=== PATIENT | female | born 1970 | race Caucasian/White ===

== ENCOUNTER 2018-03-21 16:57 | Emergency (ER) | payer OTHER ==
[~2018-03-21] VITALS: Ht 165.1 cm; Wt 104.8 kg
[2018-03-21] MEDS ORDERED: IV NORMAL SALINE 1,000ML 1,000 ML IV SCH (17:21)
[2018-03-21] MEDS ORDERED: FAMOTIDINE 20 MG/2 ML VIAL IVP ONE (17:30)
[2018-03-21] MEDS ORDERED: KETOROLAC 30 MG/ML VIAL. IV ONE (17:30)
--- NOTE | 2018-03-21 18:00 | RAD ---
INDICATION : RUQ PAIN COMPARISON: None TECHNIQUE: Multiple ultrasound images obtained through the abdomen in grayscale and color. FINDINGS: Liver: Echogenic with poor beam penetration. Large portions of liver not well seen. Gallbladder: Limited visualization but definite stones not seen. IVC: Partially distended at level of liver. Common Bile Duct: Not well seen but definitive bile duct dilation is not identified Pancreas: Poorly visualized secondary to overlying bowel gas. Right Kidney: No hydronephrosis. IMPRESSION: 1. Liver is echogenic. Nonspecific but can be seen with fatty infiltration Electronically signed by: Brannon Broderick MD (03/21/2018 5:56 PM) [facility]
--- NOTE | 2018-03-21 18:07 | PHYS DOC ---
Past History Past Medical History: Arthritis, Other Past Surgical History: Tubal ligation, Other Alcohol Use: None Drug Use: None Adult General Chief Complaint Chief Complaint: ABDOMINAL PAIN HPI HPI Patient is a 47-year-old female who presents with in of right upper quadrant pain. Patient complaining of intermittent episodes of right upper quadrant pain for 6 the stabbing pain that getting more constant for the last couple days. Patient complaining of nausea and decrease of appetite. Patient states the pain getting worse after eating. Patient was seen by her primary care physician yesterday and had ultrasound of gallbladder and labs with pending results. Patient treated her pain 10/01 and states her physician did not give her any pain medication. Patient denies fever and chills, diarrhea and constipation, urinary symptoms, vaginal bleeding or discharge. Review of Systems Review of Systems Constitutional: Denies fever or chills [] Eyes: Denies change in visual acuity, redness, or eye pain [] HENT: Denies nasal congestion or sore throat [] Respiratory: Denies cough or shortness of breath [] Cardiovascular: No additional information not addressed in HPI [] GI: Reports abdominal pain, nausea, denies vomiting, bloody stools or diarrhea [ ] : Denies dysuria or hematuria [] Musculoskeletal: Denies back pain or joint pain [] Integument: Denies rash or skin lesions [] Neurologic: Denies headache, focal weakness or sensory changes [] Endocrine: Denies polyuria or polydipsia [] All other systems were reviewed and found to be within normal limits, except as documented in this note. Current Medications Current Medications Current Medications Medications (Trade) Dose Ordered Sig/Rubi Start Time Stop Time Status Last Admin Dose Admin Famotidine (Pepcid Vial) 20 mg 1X ONCE 03/21/18 17:30 03/21/18 17:31 DC Ketorolac Tromethamine (Toradol 30mg Vial) 30 mg 1X ONCE 03/21/18 17:30 03/21/18 17:31 DC Sodium Chloride 1,000 ml @ 1,000 mls/hr Q1H 03/21/18 17:21 03/21/18 18:20 Allergies Allergies Allergies Coded Allergies Type Severity Reaction Last Updated Verified No Known Drug Allergies 03/21/18 No Physical Exam Physical Exam Constitutional: Well developed, well nourished, mild distress, non-toxic appearance. [] HENT: Normocephalic, atraumatic, oropharynx moist, no oral exudates, nose normal. [] Eyes: PERRLA, EOMI, conjunctiva normal, no discharge. [] Neck: Normal range of motion, no tenderness, supple, no stridor. [] Cardiovascular:Heart rate regular rhythm, no murmur [] Lungs & Thorax: Bilateral breath sounds clear to auscultation [] Abdomen: Bowel sounds normal, soft, right upper quadrant guarding, no tenderness , no masses, no pulsatile masses. [] Skin: Warm, dry, no erythema, no rash. [] Back: No tenderness, no CVA tenderness. [] Extremities: No tenderness, no cyanosis, no clubbing, ROM intact, no edema. [] Neurologic: Alert and oriented X 3, normal motor function, normal sensory function, no focal deficits noted. [] Psychologic: Affect normal, judgement normal, mood normal. [] Current Patient Data Vital Signs Vital Signs Date Time Temp Pulse Resp B/P (MAP) Pulse Ox O2 Delivery O2 Flow Rate FiO2 03/21/18 16:57 98.1 112 20 96 Room Air EKG EKG [] Radiology/Procedures Radiology/Procedures US shows no acute gall bladder distention. Fatty Liver.- See Formal Report[] Impressions: 1. Abd. Pain-Rt. upper quadrant 2. Suspect Biliary Colic 3. Elevated AST, ALT 78/136 Course & Med Decision Making Course & Med Decision Making Pertinent Labs and Imaging studies are pending. Evaluation of patient in ER showed 47-year-old female patient with complaining of right upper quadrant pain for several days that getting worse with eating. Patient had right upper quadrant guarding. Labs and gallbladder ultrasound is pending. Patient care transferred to Dr. Rhodes had 1800. See Dr[address] Whitaker report for details. Will discharge home with Zantact 150 twice a day and Zofran 8 for Nausea PRN up 4 x day. Must stay on clear fluid diet. Follow up with Dr. Torres- recommend EGD and out pt. Gall bladder studies. Return if any concerns. Still had some Rt. upper quadrant tenderness but much improved at time of discharge. Dragon Disclaimer Dragon Disclaimer This electronic medical record was generated, in whole or in part, using a voice recognition dictation system. Departure Departure: Impression: Primary Impression: Right upper quadrant pain Scripts Ondansetron Hcl (ZOFRAN) 8 Mg Tablet 8 MG PO QIDPRN PRN for NAUSEA/VOMITING, #30 TAB Prov: ALISON RHODES MD 03/21/18 Ranitidine Hcl (ZANTAC) 150 Mg Tablet 150 MG PO BID for pain, #30 TAB Prov: ALISON RHODES MD 03/21/18 Oxycodone Hcl/Acetaminophen (PERCOCET 5-325 MG TABLET ) 1 Each Tablet 1 TAB PO PRN Q6HRS PRN for PAIN, #30 TAB Prov: ALISON RHODES MD 03/21/18 Discharge Summary Visit Information Final Diagnosis Problems Medical Problems: (1) Right upper quadrant pain Status: Acute Brief Hospital Course Allergies Allergies Coded Allergies Type Severity Reaction Last Updated Verified No Known Drug Allergies 03/21/18 No Vital Signs Vital Signs Date Time Temp Pulse Resp B/P (MAP) Pulse Ox O2 Delivery O2 Flow Rate FiO2 03/21/18 20:45 92 16 124/74 (91) 97 Room Air 03/21/18 16:57 98.1 Lab Results Laboratory Tests Test 03/21/18 17:58 White Blood Count 10.0 x10^3/uL (4.0-11.0) Red Blood Count 4.82 x10^6/uL (3.50-5.40) Hemoglobin 14.5 g/dL (12.0-15.5) Hematocrit 42.8 % (36.0-47.0) Mean Corpuscular Volume 89 fL (79-100) Mean Corpuscular Hemoglobin 30 pg (25-35) Mean Corpuscular Hemoglobin Concent 34 g/dL (31-37) Red Cell Distribution Width 13.6 % (11.5-14.5) Platelet Count 322 x10^3/uL (140-400) Neutrophils (%) (Auto) 69 % (31-73) Lymphocytes (%) (Auto) 22 % (24-48) Monocytes (%) (Auto) 7 % (0-9) Eosinophils (%) (Auto) 1 % (0-3) Basophils (%) (Auto) 1 % (0-3) Neutrophils # (Auto) 7.0 x10^3uL (1.8-7.7) Lymphocytes # (Auto) 2.2 x10^3/uL (1.0-4.8) Monocytes # (Auto) 0.7 x10^3/uL (0.0-1.1) Eosinophils # (Auto) 0.1 x10^3/uL (0.0-0.7) Basophils # (Auto) 0.1 x10^3/uL (0.0-0.2) Urine Collection Type Unknown Urine Color Yellow Urine Clarity Clear Urine pH 5.0 Urine Specific [place] 1.010 Urine Protein Neg (NEG-TRACE) Urine Glucose (UA) Neg mg/dL (NEG) Urine Ketones (Stick) Neg mg/dL (NEG) Urine Blood Small (NEG) Urine Nitrite Neg (NEG) Urine Bilirubin Neg (NEG) Urine Urobilinogen Dipstick 0.2 mg/dL (0.2 mg/dL) Urine Leukocyte Esterase Neg (NEG) Urine RBC Occ /HPF (0-2) Urine WBC 1-4 /HPF (0-4) Urine Squamous Epithelial Cells Occ /LPF Urine Bacteria 0 /HPF (0-FEW) Urine Mucus Slight /LPF Sodium Level 138 mmol/L (136-145) Potassium Level 4.2 mmol/L (3.5-5.1) Chloride Level 101 mmol/L (98-107) Carbon Dioxide Level 29 mmol/L (21-32) Anion Gap 8 (6-14) Blood Urea Nitrogen 10 mg/dL (7-20) Creatinine 0.8 mg/dL (0.6-1.0) Estimated GFR (Cockcroft-Gault) 76.9 BUN/Creatinine Ratio 13 (6-20) Glucose Level 108 mg/dL (70-99) Calcium Level 8.9 mg/dL (8.5-10.1) Total Bilirubin 0.1 mg/dL (0.2-1.0) Aspartate Amino Transf (AST/SGOT) 78 U/L (15-37) Alanine Aminotransferase (ALT/SGPT) 136 U/L (14-59) Alkaline Phosphatase 93 U/L (46-116) Total Protein 8.0 g/dL (6.4-8.2) Albumin 3.6 g/dL (3.4-5.0) Albumin/Globulin Ratio 0.8 (1.0-1.7) Lipase 142 U/L (73-393) Brief Hospital Course Ms. López is a 47 old female who presented with Rt. upper quadrant pain- suspect biliary colic vs gastritis. Discharge Information Condition at Discharge: Improved Disposition/Orders: D/C to Home Dischare Medications Current Medications Sodium Chloride 1,000 ml @ 1,000 mls/hr Q1H IV Last administered on at 18:01; Start 03/21/18 at 17:21; Stop 03/21/18 at 18:20; Status DC Famotidine (Pepcid Vial) 20 mg 1X ONCE IVP Last administered on 03/21/18at 18: 03; Start 03/21/18 at 17:30; Stop 03/21/18 at 17:31; Status DC Ketorolac Tromethamine (Toradol 30mg Vial) 30 mg 1X ONCE IV Last administered on 03/21/18at 18:04; Start 03/21/18 at 17:30; Stop 03/21/18 at 17:31; Status DC Active Scripts Active Zofran (Ondansetron Hcl) 8 Mg Tablet 8 Mg PO QIDPRN PRN Zantac (Ranitidine Hcl) 150 Mg Tablet 150 Mg PO BID Percocet 5-325 Mg Tablet (Oxycodone Hcl/Acetaminophen) 1 Each Tablet 1 Tab PO PRN Q6HRS PRN Dragon Disclaimer This chart was dictated in whole or in part using Voice Recognition software in a busy, high-work load, and often noisy Emergency Department environment. It may contain unintended and wholly unrecognized errors or omissions. JOSE EDUARDO WHITAKER MD Mar 21, 2018 18:07 ALISON RHODES MD Mar 22, 2018 05:59
[2018-03-21 18:10] LABS: BASO # 0.1 x10^3/uL (0.0-0.2); BASO % 1 % (0-3); EOS # 0.1 x10^3/uL (0.0-0.7); EOS % 1 % (0-3); HEMATOCRIT 42.8 % (36.0-47.0); HEMOGLOBIN 14.5 g/dL (12.0-15.5); LYMPH # 2.2 x10^3/uL (1.0-4.8); LYMPH % 22 % (24-48); MEAN CORPUSCULAR HEMOGLOBIN 30 pg (25-35); MEAN CORPUSCULAR HGB CONC 34 g/dL (31-37); MEAN CORPUSCULAR VOLUME 89 fL (79-100); MONO # 0.7 x10^3/uL (0.0-1.1); MONO % 7 % (0-9); NEUT % 69 % (31-73); PLATELET COUNT 322 x10^3/uL (140-400); RED BLOOD COUNT 4.82 x10^6/uL (3.50-5.40); RED CELL DISTRIBUTION WIDTH 13.6 % (11.5-14.5)
[2018-03-21 18:18] LABS: BACTERIA,URINE 0 /HPF (0-FEW); BILIRUBIN,URINE NEG (NEG); CLARITY,URINE CLEAR; COLOR,URINE YELLOW; GLUCOSE,URINE NEG (NEG); NITRITE,URINE NEG (NEG); RBC,URINE OCC /HPF (0-2); SQUAMOUS EPITHELIAL CELL,UR OCC /LPF; UROBILINOGEN,URINE 0.2 mg/dL (0.2 mg/dL)
[2018-03-21 18:24] LABS: ALBUMIN 3.6 g/dL (3.4-5.0); ALBUMIN/GLOBULIN RATIO 0.8 (1.0-1.7); CALCIUM 8.9 mg/dL (8.5-10.1); CREATININE 0.8 mg/dL (0.6-1.0); GFR 76.9; POTASSIUM 4.2 mmol/L (3.5-5.1); TOTAL BILIRUBIN 0.1 mg/dL (0.2-1.0)
[2018-03-21] MEDS ORDERED: RANI150T21 PO (19:51)
[2018-03-21] MEDS ORDERED: OXYC1TAB15 PO (19:51)
[2018-03-21] MEDS ORDERED: ONDA8TAB9 PO (19:53)
[2018-03-21 20:45] VITALS: BP 124/74
== END 2018-03-21 20:47 | disposition home or self-care (01) ==
LOC: ER 16:57
DX: R10.11 Right upper quadrant pain (principal); R11.0 Nausea; R74.0 Nonspecific elevation of levels of transaminase and lactic acid dehydrogenase [LDH]; M19.90 Unspecified osteoarthritis, unspecified site; Z98.51 Tubal ligation status
CPT/HCPCS: 36415; 76705; 80053; 81001; 83690; 85025; 96374; 96375; 99284; J1885; J3490; J7030

== ENCOUNTER 2018-06-16 19:11 | Emergency (ER) | payer OTHER ==
[~2018-06-16] VITALS: Ht 165.1 cm; Wt 102.1 kg
[~2018-06-16 19:11] MED LIST: ONDA8TAB9 PO; OXYC1TAB15 PO; RANI150T21 PO
[2018-06-16] MEDS ORDERED: FAMOTIDINE 20 MG/2 ML VIAL IVP ONE (20:15)
--- NOTE | 2018-06-16 20:26 | PHYS DOC ---
Past History Past Medical History: Arthritis, Other Past Surgical History: Tubal ligation, Other Alcohol Use: None Drug Use: None Adult General Chief Complaint Chief Complaint: ABDOMINAL PAIN HPI HPI This is a 48-year-old female who presents to the emergency department today complaining of RUQ abdominal pain. The pain has been intermittent for some time now but became considerably worse in February 2018. Since then, the abdominal pain comes and goes but is becoming more problematic for her. She describes the pain as sharp. Occasionally radiates to mid-epigastric region. Hydrocodone has helped alleviate the pain the most, and Aleve helps a little. Sleeping on her right side and certain foods seem to make the pain worse. She also describes pain caused by palpation of her RUQ, sometimes elicited by palpating her ribs. Her most recent episode shortly followed ingestion of a pork-chop salad. She has had a positive HIDA showing an "overactive gallbladder". She has had an ultrasound which was not significant for gallstones. Surgery offered elective cholecystectomy without a guarantee of pain relief. Patient opted for additional testing to find a definitive cause for her pain. Denies trauma. Reports pain similar to prior episodes for which patient is following with general surgery and GI. Reports she is presenting to the ED for pain control. Review of Systems Review of Systems Constitutional: Denies fever or chills. Eyes: Denies change in visual acuity, redness, or eye pain. HENT: Denies nasal congestion or sore throat. Respiratory: Denies cough or shortness of breath. Cardiovascular: Denies chest pain or palpitations GI: Admits abdominal pain, occasional bloody stools. Denies diarrhea. : Denies dysuria or hematuria. Musculoskeletal: Admits back pain, joint pain. Integument: Denies rash or skin lesions. Neurologic: Denies headache, focal weakness or sensory changes. Complete systems were reviewed and found to be within normal limits, except as documented in this note. Current Medications Current Medications Adderall Wellbutrin Clobetasol Diphenhydramine Folic acid Omeprazole Xeljanz Zofran Oxycodone Allergies Allergies Allergies Coded Allergies Type Severity Reaction Last Updated Verified No Known Drug Allergies 03/21/18 No Physical Exam Physical Exam Constitutional: Well developed, well nourished, no acute distress, non-toxic appearance. [] HENT: Normocephalic, atraumatic, oropharynx moist Eyes: Conjunctiva normal, no discharge. [] Neck: Normal range of motion, no tenderness, supple, no stridor. [] Cardiovascular: Heart rate regular rhythm, no murmur [] Lungs & Thorax: Bilateral breath sounds clear to auscultation [] Abdomen: Soft, mild tenderness to epigastrium and RUQ Skin: Warm, dry, no erythema, no rash. [] Extremities: No tenderness, ROM intact, no edema. [] Neurologic: Alert and oriented X 3, no focal deficits noted. [] Psychologic: Affect normal, judgement normal, mood normal. [] EKG EKG @2111 NSR at 79bpm, NO ST elevation, some baseline artifact noted Radiology/Procedures Radiology/Procedures [] Course & Med Decision Making Course & Med Decision Making Patient presents with acute on chronic abdominal pain. She has been seen by general surgery and followed by GI specialist. She has had ultrasound and HIDA done in the past. She is here today primarily for pain control as it has become more difficult to manage. She stated that she has only had 10 tablets of oxycodone prescribed to her this year which was confirmed by [facility] report. Labs obtained and posted to chart. Pain was controlled in the ER, and she will be discharged and advised to follow-up with her general surgeon and/or GI specialist to reach a long-term solution for her abdominal pain. Patient stable for discharge with outpatient follow-up with PCP/Gen. surgery/ GI. Discussed findings and plan with patient and family, who acknowledge understanding and agreement. Dragon Disclaimer Dragon Disclaimer This electronic medical record was generated, in whole or in part, using a voice recognition dictation system. Departure Departure: Impression: Primary Impression: RUQ abdominal pain Disposition: HOME, SELF-CARE Condition: STABLE Referrals: ABDULLAHI GREENE MD (PCP) Patient Instructions: Abdominal Pain (Nonspecific) Scripts Hydrocodone Bit/Acetaminophen (NORCO 5-325 TABLET) 1 Each Tablet 0.5-1 TAB PO Q6HRS PRN for PAIN, #14 TAB Prov: LUCIA NOLEN DO 06/16/18 LUCIA NOLEN DO Jun 16, 2018 20:26
[2018-06-16] MEDS ORDERED: KETOROLAC 15 MG/ML VIAL. IV ONE (20:30)
[2018-06-16 20:52] LABS: BASO % 0 % (0-3); EOS # 0.1 x10^3/uL (0.0-0.7); EOS % 1 % (0-3); HEMOGLOBIN 14.1 g/dL (12.0-15.5); LYMPH # 2.6 x10^3/uL (1.0-4.8); LYMPH % 33 % (24-48); MEAN CORPUSCULAR HEMOGLOBIN 30 pg (25-35); MEAN CORPUSCULAR HGB CONC 34 g/dL (31-37); MEAN CORPUSCULAR VOLUME 89 fL (79-100); MONO # 0.4 x10^3/uL (0.0-1.1); MONO % 5 % (0-9); NEUT # 4.8 x10^3uL (1.8-7.7); NEUT % 61 % (31-73); PLATELET COUNT 344 x10^3/uL (140-400); RED BLOOD COUNT 4.73 x10^6/uL (3.50-5.40); RED CELL DISTRIBUTION WIDTH 13.2 % (11.5-14.5); WHITE BLOOD COUNT 7.9 x10^3/uL (4.0-11.0)
--- NOTE | 2018-06-16 21:32 | EKG ---
[address] [address] Test Date: 2018-06-16 Test Time: 21:11:59 Pat Name: POLI WOLFE Department: Room: Gender: F [employer]: : 1970 Requested By: LUCIA NOLEN Order Number: [id number] Reading MD: Binu Robison MD Measurements Intervals [place] Rate: 79 P: 49 TX: 152 QRS: 33 QRSD: 88 T: 42 QT: 424 QTc: 487 Interpretive Statements SINUS RHYTHM Electronically Signed On 06-17-2018 9:19:48 CDT by Binu Robison MD
[2018-06-16 21:50] LABS: BACTERIA,URINE 0 /HPF (0-FEW); BILIRUBIN,URINE NEG (NEG); CLARITY,URINE CLEAR; COLOR,URINE YELLOW; GLUCOSE,URINE NEG (NEG); NITRITE,URINE NEG (NEG); SQUAMOUS EPITHELIAL CELL,UR OCC /LPF; UROBILINOGEN,URINE 0.2 mg/dL (0.2 mg/dL); WBC,URINE 0 /HPF (0-4)
[2018-06-16] MEDS ORDERED: HYDROcodone/APAP 5/325MG 1 TAB TABLET PO ONE (22:00)
[2018-06-16 22:29] VITALS: BP 110/67
[2018-06-16] MEDS ORDERED: HYDR-3165 PO (22:31)
[2018-06-16 22:34] LABS: ALBUMIN 3.3 g/dL (3.4-5.0); ALBUMIN/GLOBULIN RATIO 0.9 (1.0-1.7); ALK PHOS 82 U/L (46-116); ALT (SGPT) 107 U/L (14-59); ANION GAP 10 (6-14); AST (SGOT) 66 U/L (15-37); BLOOD UREA NITROGEN 16 mg/dL (7-20); BUN/CREATININE RATIO 16 (6-20); CALCIUM 8.9 mg/dL (8.5-10.1); CARBON DIOXIDE 28 mmol/L (21-32); CHLORIDE 103 mmol/L (98-107); GFR 59.2; GLUCOSE 82 mg/dL (70-99); LIPASE 148 U/L (73-393); POTASSIUM 3.9 mmol/L (3.5-5.1); SODIUM 141 mmol/L (136-145); TOTAL BILIRUBIN 0.2 mg/dL (0.2-1.0); TOTAL PROTEIN 7.1 g/dL (6.4-8.2)
== END 2018-06-16 22:53 | disposition home or self-care (01) ==
LOC: ER 19:11
DX: R10.11 Right upper quadrant pain (principal); M54.89 Other dorsalgia; M19.90 Unspecified osteoarthritis, unspecified site; Z98.51 Tubal ligation status
CPT/HCPCS: 36415; 80053; 81001; 82553; 83690; 83735; 84484; 85025; 85610; 85730; 93005; 96374; 96375; 99284; J1885; J3490

== ENCOUNTER 2018-09-10 11:54 | Emergency (ER) | payer OTHER ==
[~2018-09-10] VITALS: Ht 165.1 cm; Wt 104.3 kg
[~2018-09-10 11:54] MED LIST changes: +HYDR-3165 PO; +RANI-376 PO; -RANI150T21 PO
[2018-09-10] MEDS ORDERED: SULF1TAB24 PO (12:34)
--- NOTE | 2018-09-10 12:34 | PHYS DOC ---
Past History Past Medical History: Arthritis, Depression, GERD, Other Past Surgical History: Tubal ligation, Other Alcohol Use: None Drug Use: None Adult General Chief Complaint Chief Complaint: SKIN RASH/ABSCESS HPI HPI Patient is a 48-year-old female who presents with complaint of tender, swollen area on the right side of her neck that is been present for the last few days. She states that initially it was just a little bit red that then has since developed increased swelling, redness and tenderness. states that this morning she noticed that it had started draining, purulent fluid. She denies any fever. She rates pain as mild.[] Review of Systems Review of Systems Constitutional: Denies fever or chills [] Respiratory: Denies cough or shortness of breath [] Cardiovascular: No additional information not addressed in HPI [] Integument: Positive abscess/skin lesions [] Allergies Allergies Allergies Coded Allergies Type Severity Reaction Last Updated Verified No Known Drug Allergies 03/21/18 No Physical Exam Physical Exam Constitutional: Well developed, well nourished, no acute distress, non-toxic appearance. [] Cardiovascular:Heart rate regular rhythm, no murmur [] Lungs & Thorax: Bilateral breath sounds clear to auscultation [] Skin: There is an area on the right posterolateral neck with erythema, swelling and tenderness with induration, measuring approximately 1.5 cm. [] Current Patient Data Vital Signs Vital Signs Date Time Temp Pulse Resp B/P (MAP) Pulse Ox O2 Delivery O2 Flow Rate FiO2 09/10/18 12:07 98.0 83 16 97 Room Air EKG EKG [] Radiology/Procedures Radiology/Procedures [] Course & Med Decision Making Course & Med Decision Making Pertinent Labs and Imaging studies reviewed. (See chart for details) [] Dragon Disclaimer Dragon Disclaimer This electronic medical record was generated, in whole or in part, using a voice recognition dictation system. Departure Departure: Impression: Primary Impression: Folliculitis Disposition: 01 HOME, SELF-CARE Condition: STABLE Referrals: ABDULLAHI GREENE MD (PCP) Patient Instructions: Folliculitis Scripts Sulfamethoxazole/Trimethoprim (BACTRIM DS TABLET) 1 Each Tablet 1 TAB PO BID for infection, #20 TAB Prov: CITLALI BURNS Jr. DO 09/10/18 CITLALI BURNS Jr. DO Sep 10, 2018 12:34
== END 2018-09-10 12:44 | disposition home or self-care (01) ==
LOC: ER 11:54
DX: L73.9 Follicular disorder, unspecified (principal); M19.90 Unspecified osteoarthritis, unspecified site; F32.9 Major depressive disorder, single episode, unspecified; K21.9 Gastro-esophageal reflux disease without esophagitis
CPT/HCPCS: 99283

== ENCOUNTER 2019-08-28 22:51 | Emergency (ER) | payer OTHER ==
[~2019-08-28] VITALS: Ht 165.1 cm; Wt 95.6 kg
[~2019-08-28 22:51] MED LIST changes: +SULF1TAB24 PO
--- NOTE | 2019-08-28 23:03 | PHYS DOC ---
Past History Past Medical History: Arthritis, Constipation, Depression, Diabetes, GERD, Other Past Surgical History: Cholecystectomy, Tubal ligation, Other Alcohol Use: None Drug Use: None General Adult HPI: HPI: "..I was over at [facility] for a GI follow-through study... As part of evaluation for weight loss surgery.. They had me drink contrast and do multiple x-rays... Afterwards I did eat but I was nauseated... Now I got severe pain here in my right mid abdomen..." Patient is a 49 year old female who presents with above hx and complaints of right mid abdomen pain after a GI follow-through study at [facility]. Patient getting follow-through study and prep for weight loss surgery. Patient denies any intake of bad food. Patient denies any trauma. Patient denies any specific ill contacts. Patient has not traveled outside the [place] area. No hx. of specific ill contacts. Pt. does have hx of constipation. Hx. prior cholecystectomy and tubal ligation.. Patient also has history of elevated blood glucose levels. The patient normally follows with Dr. Greene. Review of Systems: Review of Systems: Constitutional: Denies fever or chills Eyes: Denies change in visual acuity HENT: Denies nasal congestion or sore throat Respiratory: Denies cough or shortness of breath Cardiovascular: Denies chest pain or edema GI: Complaints of abdominal pain, nausea. Denies vomiting, bloody stools or diarrhea : Denies dysuria Musculoskeletal: Denies back pain or joint pain Integument: Denies rash Neurologic: Denies headache, focal weakness or sensory changes Endocrine: Denies polyuria or polydipsia Lymphatic: Denies swollen glands Psychiatric: Denies depression or anxiety Heart Score: HEART Score for Chest Pain: HEART Score for Chest Pain Response (Comments) Value History Slighlty/Non-Suspicious 0 ECG Nonspecific Repolarizatio 1 Age >45 - < 65 1 Risk Factors 1 or 2 Risk Factors 1 Troponin < Normal Limit 0 Total 3 Risk Factors: Risk Factors: DM, Current or recent (<one month) smoker, HTN, HLP, family history of CAD, obesity. Risk Scores: Score 0 - 3: 2.5% MACE over next 6 weeks - Discharge Home Score 4 - 6: 20.3% MACE over next 6 weeks - Admit for Clinical Observation Score 7 - 10: 72.7% MACE over next 6 weeks - Early Invasive Strategies Family History: Family History: Noncontributory to presentation Current Medications: Current Meds: See nursing for home meds Allergies: Allergies: Allergies Coded Allergies Type Severity Reaction Last Updated Verified No Known Drug Allergies 03/21/18 No Physical Exam: PE: Constitutional: In moderately acute distress, non-toxic appearance. [] HENT: Normocephalic, atraumatic, bilateral external ears normal, oropharynx moist, no oral exudates, nose normal. [] Eyes: PERRLA, EOMI, conjunctiva normal, no discharge. [] Neck: Normal range of motion, no tenderness, supple, no stridor. [] Cardiovascular:Heart rate regular rhythm, no murmur [] Lungs & Thorax: Bilateral breath sounds equal at apex auscultation [] Abdomen: Bowel sounds hyperactive, soft, mid abdomen right tenderness, no masses, no pulsatile masses. Distended. Mild focal rebound to mid abdomen. Old surgery scars Skin: Warm, dry, no erythema, no rash. [] Back: No tenderness, no CVA tenderness. [] Extremities: No tenderness, no cyanosis, no clubbing, ROM intact, no edema. [] No psoas sign. Neurologic: Alert and oriented X 3, normal motor function, normal sensory function, no focal deficits noted. [] Psychologic: Affect anxious, judgement normal, mood normal. [] EKG: EKG: My interpretation EKG shows a sinus rhythm at 79 bpm. No findings of acute STEMI with contralateral changes. [] Radiology/Procedures: Radiology/Procedures: [][address] [address] IMAGING REPORT Signed PATIENT: POLI WOLFE ACCOUNT: [id number] : 1970 LOCATION: ER AGE: 49 SEX: F EXAM STATUS: PRE ER ORD. PHYSICIAN: ALISON BARGER MD REASON: stabbing pain, pt had ugi series at the [facility] this morning PROCEDURE: ACUTE ABDOMEN SERIES EXAM: Frontal view of the chest, AP views of the abdomen in upright and supine positions. CLINICAL INDICATION: Reason: stabbing pain, pt had ugi series at [facility] this morning / Spl. Instructions: / History: COMPARISON: 08/28/2019 FINDINGS and IMPRESSION: The heart is not enlarged. Mediastinal and hilar contours are normal. No focal parenchymal airspace opacity. No pleural effusion or pneumothorax. No abnormal small or large bowel dilatation. Contrast is seen within the small and large bowel, to the rectum. No abnormal soft tissue mass effect. No suspicious calcifications are seen. No free intraperitoneal gas. Cholecystectomy clips are seen. Electronically signed by: Al Pitts MD (08/28/2019 11:36 PM) [facility] DICTATED AND SIGNED BY: AL PITTS MD DATE: 08/28/19 [id number] CC: ALISON BARGER MD; ABDULLAHI GREENE MD ~ Course & Med Decision Making: Course & Med Decision Making Pertinent Labs and Imaging studies reviewed. (See chart for details) Pt. to stay on clear fluid diet only for the next 2 days. No solids. No milk products. Must allow bowel rest. Patient expect a loose stool with the use of milk of magnesia tonight. Patient push clear fluids and fruit juices. Patient return if any concerns. Patient follow-up with Dr. Greene review pending labs. Impression- 1. Abdomen pain 2. Mild elevation in AST and ALT 51/102 3. Mild hypokalemia 3.4 4. Drug Screen Amphetamine 5. Constipation [] Dragon Disclaimer: Dragon Disclaimer: This electronic medical record was generated, in whole or in part, using a voice recognition dictation system. Departure Departure: Disposition: 01 HOME/RESIDENCE PRIOR TO ADM Condition: STABLE Referrals: ABDULLAHI GREENE MD (PCP) Justification of Admission: Justification of Admission: Justification of Admission Dx: N/A Dragon Disclaimer This chart was dictated in whole or in part using Voice Recognition software in a busy, high-work load, and often noisy Emergency Department environment. It may contain unintended and wholly unrecognized errors or omissions. Dragon Disclaimer This chart was dictated in whole or in part using Voice Recognition software in a busy, high-work load, and often noisy Emergency Department environment. It may contain unintended and wholly unrecognized errors or omissions. ALISON BARGER MD Aug 28, 2019 23:03
[2019-08-28] MEDS ORDERED: IV RINGERS SOLUTION,LACTATED 1,000 ML IV SCH (23:30)
[2019-08-28] MEDS ORDERED: MORPHINE SULFATE 10 MG/ML SYRINGE. SQ ONE (23:30)
[2019-08-28] MEDS ORDERED: ONDANSETRON PF 4 MG/2 ML VIAL. IVP ONE (23:30)
--- NOTE | 2019-08-28 23:39 | RAD ---
EXAM: Frontal view of the chest, AP views of the abdomen in upright and supine positions. CLINICAL INDICATION: Reason: stabbing pain, pt had ugi series at [facility] this morning / [facility]. Instructions: / History: COMPARISON: 08/28/2019 FINDINGS and IMPRESSION: The heart is not enlarged. Mediastinal and hilar contours are normal. No focal parenchymal airspace opacity. No pleural effusion or pneumothorax. No abnormal small or large bowel dilatation. Contrast is seen within the small and large bowel, to the rectum. No abnormal soft tissue mass effect. No suspicious calcifications are seen. No free intraperitoneal gas. Cholecystectomy clips are seen. Electronically signed by: Al Stanley MD (08/28/2019 11:36 PM) [facility]
[2019-08-28 23:57] LABS: BACTERIA,URINE 0 /HPF (0-FEW); BARBITURATES NEG (NEG); BENZODIAZEPINES NEG (NEG); BILIRUBIN,URINE NEG (NEG); CANNABINOIDS NEG (NEG); CLARITY,URINE CLEAR; COCAINE NEG (NEG); COLOR,URINE YELLOW; GLUCOSE,URINE NEG (NEG); METHADONE NEG (NEG); NITRITE,URINE NEG (NEG); OPIATES NEG (NEG); PHENCYCLIDINE NEG (NEG); RBC,URINE 0 /HPF (0-2); SQUAMOUS EPITHELIAL CELL,UR OCC /LPF; UROBILINOGEN,URINE 0.2 mg/dL (0.2 mg/dL); WBC,URINE RARE /HPF (0-4)
[2019-08-29] LABS: AMPHETAMINE/METHAMPHETAMINE POS (NEG)
[2019-08-29 00:19] LABS: BASO # 0.1 x10^3/uL (0.0-0.2); BASO % 1 % (0-3); EOS # 0.1 x10^3/uL (0.0-0.7); EOS % 1 % (0-3); HEMATOCRIT 40.3 % (36.0-47.0); HEMOGLOBIN 13.6 g/dL (12.0-15.5); LYMPH # 2.4 x10^3/uL (1.0-4.8); LYMPH % 30 % (24-48); MEAN CORPUSCULAR HEMOGLOBIN 30 pg (25-35); MEAN CORPUSCULAR HGB CONC 34 g/dL (31-37); MEAN CORPUSCULAR VOLUME 88 fL (79-100); MONO # 0.6 x10^3/uL (0.0-1.1); MONO % 7 % (0-9); NEUT # 4.9 x10^3uL (1.8-7.7); NEUT % 61 % (31-73); PLATELET COUNT 280 x10^3/uL (140-400); RED BLOOD COUNT 4.58 x10^6/uL (3.50-5.40); RED CELL DISTRIBUTION WIDTH 12.8 % (11.5-14.5); WHITE BLOOD COUNT 8.1 x10^3/uL (4.0-11.0)
[2019-08-29 00:29] LABS: CALCIUM 8.9 mg/dL (8.5-10.1); GFR 58.9; POTASSIUM 3.4 mmol/L (3.5-5.1)
[2019-08-29 00:42] LABS: ALBUMIN 3.2 g/dL (3.4-5.0); DIRECT BILIRUBIN 0.1 mg/dL (0.0-0.2); MAGNESIUM 1.9 mg/dL (1.8-2.4); TOTAL BILIRUBIN 0.2 mg/dL (0.2-1.0); TOTAL PROTEIN 7.2 g/dL (6.4-8.2)
[2019-08-29] MEDS ORDERED: MAGNESIUM HYDROXIDE 2,400 MG/30 ML ORAL.SUSP. PO ONE (03:00)
[2019-08-29] MEDS ORDERED: POTASSIUM CHLORIDE 20 MEQ TABLET.ER. PO ONE (03:00)
[2019-08-29 03:21] VITALS: BP 100/57
--- NOTE | 2019-08-31 07:16 | EKG ---
[address] [address] Test Date: 2019-08-28 Test Time: 23:31:50 Pat Name: POLI WOLFE Department: Room: Gender: [employer]: : [id number] Requested By: ALISON BARGER Order Number: [id number] Reading MD: Binu Robison MD Measurements Intervals [place] Rate: P: ME: QRS: QRSD: T: QT: QTc: Interpretive Statements SR Electronically Signed On 09-03-2019 11:16:02 CDT by Binu Robison MD
== END 2019-08-29 03:25 | disposition home or self-care (01) ==
LOC: ER 22:51
DX: K59.00 Constipation, unspecified (principal); E87.6 Hypokalemia; R74.8 Abnormal levels of other serum enzymes; F15.10 Other stimulant abuse, uncomplicated; E11.65 Type 2 diabetes mellitus with hyperglycemia; M19.90 Unspecified osteoarthritis, unspecified site; K21.9 Gastro-esophageal reflux disease without esophagitis; Z90.49 Acquired absence of other specified parts of digestive tract; Z98.51 Tubal ligation status
CPT/HCPCS: 36415; 74022; 80048; 80076; 80307; 81001; 82150; 82550; 83690; 83735; 83880; 84443; 84484; 85025; 85379; 85610; 85730; 86705; 86709; 86803; 87340; 93005; 96361; 96372; 96374; 99285; J2270; J2405; J7120